=== PATIENT | male | born 1985 | race Caucasian/White ===

== ENCOUNTER 2020-05-06 10:39 | Emergency (ER) | payer MEDICAID ==
[~2020-05-06] VITALS: Ht 172.7 cm; Wt 83.9 kg
[2020-05-06] MEDS ORDERED: NEURONTIN300 MG PO (10:55)
[2020-05-06] MEDS ORDERED: REMERON15 M2 PO (10:55)
[2020-05-06 10:59] LABS: ABSOLUTE BASOPHILS 0.1 thou/uL (0.0-0.2); ABSOLUTE EOSINOPHILS 0.7 thou/uL (0.0-0.7); ABSOLUTE LYMPHOCYTES 2.7 thou/uL (0.8-5.3); ABSOLUTE MONOCYTES 0.7 thou/uL (0.0-1.2); ABSOLUTE NEUTROPHILS 9.7 thou/uL (1.6-8.1); BASOPHILS 0.9 %; HEMATOCRIT 54.6 % (42.0-52.0); HEMOGLOBIN 19.3 gm/dL (14.0-18.0); LYMPHOCYTES 19.1 %; MCH 33.1 pg (26.0-34.0); MCHC 35.4 g/dL (28.0-37.0); MCV 93.4 fL (80.0-100.0); MONOCYTES 4.9 %; MPV 7.4 fl. (7.2-11.1); NUCLEATED RBCS 0 /100WBC; PLATELET COUNT* 286 thou/uL (150-400); POLYS 70.1 %; RBC 5.84 mil/uL (4.50-6.00); RDW-CV 14.7 % (10.5-14.5); WBC 13.9 thou/uL (4.0-11.0)
[2020-05-06 11:12] LABS: URINE BLOOD NEGATIVE (Negative); URINE CLARITY CLEAR; URINE COLOR BROWN; URINE GLUCOSE-RANDOM NEGATIVE (Negative); URINE KETONES 1+ (Negative); URINE LEUKOCYTES-REFLEX NEGATIVE (Negative); URINE PROTEIN 2+ (Negative); URINE SPECIFIC GRAVITY >= 1.030 (1.005-1.030)
[2020-05-06 11:16] LABS: URINE BILIRUBIN 2+ (Negative); URINE NITRITE-REFLEX POSITIVE (Negative)
[2020-05-06 11:17] LABS: ICTOTEST (BILI CONFIRMATORY) Positive (Negative)
[2020-05-06 11:22] LABS: CALCIUM 9.8 mg/dL (8.5-10.1); CREATININE 1.3 mg/dL (0.6-1.3); POTASSIUM 3.7 mmol/L (3.5-5.1)
[2020-05-06 11:26] LABS: ALBUMIN 4.7 g/dL (3.4-5.0); TOTAL BILIRUBIN 0.9 mg/dL (<0.1-1.0); TOTAL PROTEIN 9.1 g/dL (6.4-8.2)
[2020-05-06 11:27] LABS: AMP/METHAMP Negative (Negative); BARBITURATES Negative (Negative); BENZODIAZEPINES Negative (Negative); COCAINE Negative (Negative); METHADONE Negative (Negative); OPIATES Negative (Negative); PCP Negative (Negative); THC POSITIVE (Negative)
[2020-05-06 11:28] LABS: BACTERIA-REFLEX 1-9 Few /HPF (None Seen); CASTS None Seen /LPF (None Seen); CRYSTALS None Seen /LPF (None Seen); MUCUS >6 Heavy strn/LPF (None Seen); SQUAMOUS 0-3 Few /LPF (0-3); URINE RBC None Seen /HPF (0-2); URINE WBC-REFLEX None Seen /HPF (0-5)
--- NOTE | 2020-05-06 13:50 | EKG ---
[place] [address] ELECTROCARDIOGRAM REPORT Name: MODE SANTIZOIC Dominick Room: [facility]#: [id number] Admission: 05/06/20 Attend Phys: Discharge: Date of : 83 Date of Service: 05/06/20 1052 Report #: [id number] THIS REPORT FOR: //name// [facility] ED Test Date: 2020-05-06 Test Time: 10:52:43 Pat Name: ISSAC SANTIZO Department: Room: Gender: Screening Unit Registered Nurse: [facility] : 1985 Requested By: Yocasta Currie Order Number: [id number] MD: Richar Schmitz Measurements Intervals [place] Rate: 82 P: 54 [place]: 164 QRS: 42 QRSD: 93 T: 33 QT: 356 QTc: 416 Interpretive Statements Sinus rhythm Probable left atrial enlargement No previous ECG available for comparison Electronically Signed On 05-06-2020 13:49:53 CDT by Richar Schmitz [email or web address] <ELECTRONICALLY SIGNED> By: Richar Schmitz MD, [facility] 05/06/20 1349 1052 51 Richar Schmitz MD, FACC /EPI
[2020-05-06] MEDS ORDERED: ONDANSETRON HCL4 M2 PO (14:47)
[2020-05-06] MEDS ORDERED: CIPRO500 MG PO (14:47)
[2020-05-06] MEDS ORDERED: NORCO 5-325 TA1 EAC2 PO (14:47)
[2020-05-06 15:10] VITALS: BP 127/68
== END 2020-05-06 15:11 | disposition home or self-care (01) ==
LOC: M.ERS 10:39
PROVIDERS: Nurse Practitioner Family
DX: I88.0 Nonspecific mesenteric lymphadenitis (principal); N39.0 Urinary tract infection, site not specified; F17.220 Nicotine dependence, chewing tobacco, uncomplicated; Z79.899 Other long term (current) drug therapy